=== PATIENT | male | born 1980 | race African-American/Black ===

== ENCOUNTER 2019-11-14 09:19 | Emergency (ER) | payer SELFPAY ==
[2019-11-14] MEDS ORDERED: Labetalol 100 MG/20 ML MDV IVPUSH ONE (09:56)
--- NOTE | 2019-11-14 10:06 | EDM.PDOC ---
ED [facility] GENERAL MEDICAL PROBLEM - General Chief Complaint: Fever Stated Complaint: FEVER Time Seen by Provider: 11/14/19 09:25 - History of Present Illness INITIAL COMMENTS - FREE TEXT/NARRATIVE: HISTORY AND PHYSICAL: History of present illness: This 39-year-old male with a past medical history of hypertension, not currently on therapy, obesity, and no recent travel outside [place] complains of 3 to 4 days of waking at night with a fever. He denies any cough, shortness of breath, but does have some mild difficulty breathing when the fevers occur at night. He does not measure the temperature it is only subjective. He also complains of urinary frequency and some burning. Denies having history of tuberculosis. He did emigrate from [place] 3 years ago. He has not been outside the country or exposed to malaria. No other associated signs or symptoms. No other modifying, aggravating or alleviating factors. He specifically denies chest pain and shortness of breath now. Review of systems: A 10-point review of systems, other than pertinent positives and negatives as stated per HPI, is otherwise negative. Past medical history: As per history of present illness and as reviewed below otherwise noncontributory. Surgical history: As per history of present illness and as reviewed below otherwise noncontributory. Social history: No reported history of drug or alcohol abuse. Family history: As per history of present illness and as reviewed below otherwise noncontributory. Physical exam: VITAL SIGNS: Reviewed. GENERAL: Very mild distress. Concerned about his elevated blood pressure. HEAD: No signs of head trauma. EYES: Pupils are equal. Extraocular motions intact. EARS: Hearing grossly intact. MOUTH: Oropharynx is normal. NECK: No adenopathy, no JVD. CHEST: Chest with clear breath sounds bilaterally. No wheezes, rales, or rhonchi. CARDIAC: Regular rate and rhythm. Normal S1 and S2, without murmurs, gallops, or rubs. VASCULAR: Peripheral pulses normal and equal in all extremities. ABDOMEN: Soft, without detectable tenderness. No sign of distention. No rebound or guarding, and no masses palpated. MUSCULOSKELETAL: Good range of motion of all major joints. Extremities without clubbing, cyanosis or edema. NEUROLOGIC EXAM: Alert and oriented x 3. No focal sensory or motor deficits. Speech normal. Follows commands. PSYCHIATRIC: Mood normal. SKIN: No rash or lesions. Initial Differential Diagnosis & Plan: Differential diagnosis includes: Fever (undifferentiated): Bacteremia or early sepsis, influenza/influenza-like illness, viremia, respiratory or urinary infection. I conducted a thorough search for underlying endorgan dysfunction, signs of infection, and have no evidence of current infection. The patient has Hypertension: The differential diagnosis for hypertension includes hypertensive emergency and hypertensive urgency. I conducted a thorough search for evidence of end-organ damage. The patient does not have any deterioration in mental status to suggest hypertensive encephalopathy. She does not have any acute ophthalmic complaints to suggest hypertensive retinopathy. She does not have any chest pain to suggest angina. The best treatment for her is oral antihypertensive, which can be begun with a prescription. Definitive disposition and diagnosis as appropriate pending reevaluation and review of above. - Related Data Allergies Allergy/AdvReac Type Severity Reaction Status Date / Time No Known Allergies Allergy Verified 11/14/19 09:41 Home Meds: Home Meds hydroCHLOROthiazide [Hydrochlorothiazide] 25 mg PO QAM #60 tablet 11/14/19 [Rx] Past Medical History - Past Health History Medical/Surgical History: Denies Medical/Surgical History Social & Family History - Family History Family Medical History: Noncontributory - Tobacco Use Smoking Status *Q: Never Smoker ED ROS GENERAL - Review of Systems Review Of Systems: Comprehensive ROS is negative, except as noted in HPI. Constitutional: Reports: Fever Respiratory: Reports: No Symptoms Cardiovascular: Reports: No Symptoms Endocrine: Reports: No Symptoms GI/Abdominal: Reports: No Symptoms : Reports: Dysuria, Frequency Musculoskeletal: Reports: No Symptoms Skin: Reports: No Symptoms Neurological: Reports: No Symptoms Psychiatric: Reports: No Symptoms Hematologic/Lymphatic: Reports: No Symptoms Immunologic: Reports: No Symptoms ED EXAM, SEPSIS - Physical Exam Exam: Not Obtained (above) Exam Limited By: No Limitations (above) General Appearance: Alert, Mild Distress Ears: Normal External Exam Nose: Normal Inspection Throat/Mouth: Normal Inspection EKG INTERPRETATION EKG Interpretation Comments: 12 lead EKG interpretation Obtained: November 14, 2019 at 9:47 AM Rhythm: Sinus Rate: 85 [place]: Normal Intervals: Voltage criteria for LVH in leads I. ST/T Segments: Nonspecific ST-T changes Interpretation: This rhythm with voltage criteria for LVH in lead I and nonspecific ST-T changes Course - Vital Signs Last Recorded V/S: Last Vital Signs Temp 96.1 F L 11/14/19 09:33 Pulse 69 11/14/19 10:33 Resp 16 11/14/19 10:33 BP 159/96 H 11/14/19 10:33 Pulse Ox 96 11/14/19 10:33 - Orders/Labs/Meds Orders: Active Orders 24 hr Category Date Time Status EKG Documentation Completion [RC] STAT Care 11/14/19 09:42 Active CULTURE BLOOD [BC] Stat Lab 11/14/19 10:05 Received CULTURE BLOOD [BC] Stat Lab 11/14/19 10:12 Received UA RFX ISABELA AND CULT IF INDIC [URIN] Stat Lab 11/14/19 12:06 Received Blood Culture x2 Reflex Set [OM.PC] Stat Oth 11/14/19 09:55 Ordered Labs: Laboratory Tests 11/14/19 11/14/19 11/14/19 Range/Units 09:45 09:45 09:45 WBC 10.53 (4.0-11.0) K/uL RBC 5.84 (4.50-5.90) M/uL Hgb 15.9 (13.0-17.0) g/dL Hct 47.4 (38.0-50.0) % MCV 81.2 (80.0-98.0) fL MCH 27.2 (27.0-32.0) pg MCHC 33.5 (31.0-37.0) g/dL RDW Std Deviation 37.1 (28.0-62.0) fl RDW Coeff of Cally 13 (11.0-15.0) % Plt Count 340 (150-400) K/uL MPV 10.20 (7.40-12.00) fL Neut % (Auto) 61.0 (48.0-80.0) % Lymph % (Auto) 26.5 (16.0-40.0) % [place] % (Auto) 11.0 (0.0-15.0) % Eos % (Auto) 1.2 (0.0-7.0) % Baso % (Auto) 0.3 (0.0-1.5) % Neut # (Auto) 6.4 H (1.4-5.7) K/uL Lymph # (Auto) 2.8 H (0.6-2.4) K/uL Wharton # (Auto) 1.2 H (0.0-0.8) K/uL Eos # (Auto) 0.1 (0.0-0.7) K/uL Baso # (Auto) 0.0 (0.0-0.1) K/uL Nucleated RBC % 0.0 /100WBC Nucleated RBCs # 0 K/uL INR Sodium 138 (136-148) mmol/L Potassium 4.0 (3.5-5.1) mmol/L Chloride 101 (98-107) mmol/L Carbon Dioxide 27.8 (21.0-32.0) mmol/L BUN 17 (7.0-18.0) mg/dL Creatinine 1.1 (0.8-1.3) mg/dL Est Cr Clr Drug Dosing 111.79 mL/min Estimated GFR (MDRD) > 60.0 ml/min Glucose 120 H (74-106) mg/dL Calcium 8.9 (8.5-10.1) mg/dL Total Bilirubin 0.3 (0.2-1.0) mg/dL AST 26 (15-37) IU/L ALT 47 (14-63) IU/L Alkaline Phosphatase 97 (46-116) U/L Troponin I < 0.050 (0.000-0.056) ng/mL B-Natriuretic Peptide (<100) PG/ML Total Protein 8.5 H (6.4-8.2) g/dL Albumin 4.0 (3.4-5.0) g/dL Globulin 4.5 H (2.6-4.0) g/dL Albumin/Globulin Ratio 0.9 (0.9-1.6) 11/14/19 11/14/19 Range/Units 09:45 09:45 WBC (4.0-11.0) K/uL RBC (4.50-5.90) M/uL Hgb (13.0-17.0) g/dL Hct (38.0-50.0) % MCV (80.0-98.0) fL MCH (27.0-32.0) pg MCHC (31.0-37.0) g/dL RDW Std Deviation (28.0-62.0) fl RDW Coeff of Cally (11.0-15.0) % Plt Count (150-400) K/uL MPV (7.40-12.00) fL Neut % (Auto) (48.0-80.0) % Lymph % (Auto) (16.0-40.0) % [place] % (Auto) (0.0-15.0) % Eos % (Auto) (0.0-7.0) % Baso % (Auto) (0.0-1.5) % Neut # (Auto) (1.4-5.7) K/uL Lymph # (Auto) (0.6-2.4) K/uL [place] # (Auto) (0.0-0.8) K/uL Eos # (Auto) (0.0-0.7) K/uL Baso # (Auto) (0.0-0.1) K/uL Nucleated RBC % /100WBC Nucleated RBCs # K/uL INR 0.96 Sodium (136-148) mmol/L Potassium (3.5-5.1) mmol/L Chloride (98-107) mmol/L Carbon Dioxide (21.0-32.0) mmol/L BUN (7.0-18.0) mg/dL Creatinine (0.8-1.3) mg/dL Est Cr Clr Drug Dosing mL/min Estimated GFR (MDRD) ml/min Glucose (74-106) mg/dL Calcium (8.5-10.1) mg/dL Total Bilirubin (0.2-1.0) mg/dL AST (15-37) IU/L ALT (14-63) IU/L Alkaline Phosphatase (46-116) U/L Troponin I (0.000-0.056) ng/mL B-Natriuretic Peptide < 2 (<100) PG/ML Total Protein (6.4-8.2) g/dL Albumin (3.4-5.0) g/dL Globulin (2.6-4.0) g/dL Albumin/Globulin Ratio (0.9-1.6) Meds: Medications Discontinued Medications Generic Name Dose Route Start Last Admin Trade Name Freq PRN Reason Stop Dose Admin Labetalol HCl 20 mg 11/14/19 09:56 11/14/19 10:04 Normodyne IVPUSH 11/14/19 09:57 20 mg ONETIME ONE Administration Protocol - Re-Assessments/Exams Free Text/Narrative Re-Assessment/Exam: 11/14/19 12:19 UA results are now IN. The patient does have evidence of urinary tract infection the patient will be treated with antibiotics including a dose of ceftriaxone here. I will give a dose of oral azithromycin to cover for gonorrhea chlamydia. I will send the patient home on appropriate cephalosporin. Departure - Departure Time of Disposition: 12:20 Disposition: Home, Self-Care 01 Clinical Impression: Pyelonephritis, Hypertension - Discharge Information *PRESCRIPTION DRUG MONITORING PROGRAM REVIEWED*: Not Applicable *COPY OF PRESCRIPTION DRUG MONITORING REPORT IN PATIENT TONI: Not Applicable Prescriptions: hydroCHLOROthiazide [Hydrochlorothiazide] 25 mg PO QAM #60 tablet Instructions: Pyelonephritis, Adult, [id number], Hypertension, Adult, Prostatitis Referrals: PCP,None [Primary Care Provider] - Forms: ED Department Discharge Additional Instructions: The following information is given to patients seen in the emergency department who are being discharged to home. This information is to outline your options for follow-up care. We provide all patients seen in our emergency department with a follow-up referral. The need for follow-up, as well as the timing and circumstances, are variable depending upon the specifics of your emergency department visit. If you don't have a primary care physician on staff, we will provide you with a referral. We always advise you to contact your personal physician following an emergency department visit to inform them of the circumstance of the visit and for follow-up with them and/or the need for any referrals to a consulting specialist. The emergency department will also refer you to a specialist when appropriate. This referral assures that you have the opportunity for follow-up care with a specialist. All of these measure are taken in an effort to provide you with optimal care, which includes your follow-up. Under all circumstances we always encourage you to contact your private physician who remains a resource for coordinating your care. When calling for follow-up care, please make the office aware that this follow-up is from your recent emergency room visit. If for any reason you are refused follow-up, please contact the [facility] Emergency Department at and asked to speak to the emergency department charge nurse. Thank you for coming to the emergency department at [facility]. We appreciate you trusting us with your care. We have found that you have a urinary tract/kidney infection. You could also have early infection in your prostate. If you do not get better after your course of antibiotics you will need to see your physician for additional antibiotics or treatment. Please return if you have vomiting and cannot tolerate your medications, worsening or any other concerns. We will also place you on an antibiotic, medications for your high blood pressure, and a probiotic to limit the negative effects of your antibiotic. Sepsis Event Note - Evaluation Sepsis Screening Result: No Definite Risk - Focused Exam Vital Signs: Vital Signs Temp Temp Pulse Resp BP Pulse Ox 11/14/19 10:33 69 16 159/96 H 96 11/14/19 10:05 77 174/107 H 11/14/19 09:33 97.8 F 96.1 F L 103 H 16 195/117 H 100 Date Exam was Performed: 11/14/19 Time Exam was Performed: 12:13 - My Orders Last 24 Hours: My Active Orders 11/14/19 09:42 EKG Documentation Completion [RC] STAT 11/14/19 09:55 Blood Culture x2 Reflex Set [OM.PC] Stat 11/14/19 10:05 CULTURE BLOOD [BC] Stat 11/14/19 10:12 CULTURE BLOOD [BC] Stat 11/14/19 12:06 UA RFX ISABELA AND CULT IF INDIC [URIN] Stat - Assessment/Plan Last 24 Hours: My Active Orders 11/14/19 09:42 EKG Documentation Completion [RC] STAT 11/14/19 09:55 Blood Culture x2 Reflex Set [OM.PC] Stat 11/14/19 10:05 CULTURE BLOOD [BC] Stat 11/14/19 10:12 CULTURE BLOOD [BC] Stat 11/14/19 12:06 UA RFX ISABELA AND CULT IF INDIC [URIN] Stat
--- NOTE | 2019-11-14 10:15 | CR ---
Chest: Portable view of the chest was obtained. Comparison: No previous chest imaging is available. Heart size and mediastinum are normal. Lungs are clear with no acute parenchymal change. Bony structures are unremarkable. Impression: 1. Nothing acute is appreciated on portable chest x-ray. Diagnostic code #1 This report was dictated in MDT
[2019-11-14 10:21] LABS: BLOOD UREA NITROGEN,BUN 17 mg/dL (7.0-18.0); CARBON DIOXIDE,CO2 27.8 mmol/L (21.0-32.0); CHLORIDE,CL 101 mmol/L (98-107); GLUCOSE RANDOM 120 mg/dL (74-106); SODIUM,NA 138 mmol/L (136-148)
[2019-11-14] MEDS ORDERED: cefTRIAXone 1 GM Vial IV ONE (12:23)
[2019-11-14] MEDS ORDERED: cefTRIAXone 2 GM in Premix Bag 1 BAG IV ONE (12:25)
[2019-11-14] MEDS ORDERED: Azithromycin 250 MG Tab PO ONE (12:27)
== END 2019-11-14 13:19 | disposition home or self-care (01) ==
LOC: MW.ED 09:19
DX: N12 Tubulo-interstitial nephritis, not specified as acute or chronic (principal); I10 Essential (primary) hypertension
CPT/HCPCS: 36415; 71045; 80053; 81001; 83880; 84484; 85025; 85610; 87040; 87086; 87088; 87186; 93005; 96365; 96375; 99284; A9270; J0696; J3490; 99283